=== PATIENT | male | born 1970 | race Caucasian/White ===

== ENCOUNTER → 2019-11-16 07:50 | Outpatient (CLI) | payer BC, SELFPAY ==
--- NOTE | 2019-11-16 07:57 | US_ITS ---
STUDY: ABDOMINAL ULTRASOUND - RIGHT UPPER QUADRANT REASON FOR VISIT: Male, 49 years old elevated lft TECHNIQUE: Ultrasound evaluation of the right upper quadrant was performed with real-time and static mott-scale imaging. TECHNICAL QUALITY: Adequate. COMPARISON: None. FINDINGS: Liver: The liver measures 17.4 cm. There is increased echogenicity consistent with fatty infiltration. The bile ducts are within normal limits. There is hepatic color flow. The direction of portal flow is hepatopetal. There is no demonstrated mass lesion. Gallbladder: Normal distended gallbladder. The gallbladder wall measures 2.6 mm. There is a negative sonographic Martin''s sign. There is no pericholecystic fluid. There are no gallstones. Common Bile Duct (C.B.D.): The common bile duct measures 5.6 mm. Pancreas: Normal size of the head, body and tail of the pancreas. There is increased echogenicity of the pancreas. There is no demonstrated pancreatic mass or cyst. Right Kidney: Normal size of the right kidney. The right kidney measures 10.9 cm x 6.7 cm x 6.5 cm. Normal renal cortex. The right cortex measures 2.2 cm. There is no demonstrated renal mass or cyst. There is no right hydronephrosis. US/Liver IMPRESSION: Mild degree of fatty infiltration of the liver. Electronically Signed: Da Buchanan, at 14:27 EDT , Service support ,
== END ==
PROVIDERS: PCP Family Medicine; Referring Provider Internal Medicine Rheumatology; Visit Provider Internal Medicine Rheumatology
DX: R74.8 Abnormal levels of other serum enzymes (principal)
CPT/HCPCS: 76705

== ENCOUNTER 2021-09-09 13:00 | Outpatient (RCR) | payer BC, SELFPAY ==
--- NOTE | 2021-08-02 15:53 | HP.PTEVAL ---
Patient's Visit Information ELAINA EDUARDO III is a 51 year old M referred to Physical Therapy by Dr. Ash Bethea MD with a diagnosis of SCIATICA. Date of Evaluation: 08/02/21 Physical Therapist: Unique Doll PT, Cert MDT - Visit Plan Frequency: 2-3x /Week Duration: 4-6 Weeks Plan: AQUATIC THERAPY FOR PAIN RELIEF, POSTURE CORRECTION/STRENGTHENING, INSTRUCTION IN APPROPRIATE BODY MECHANICS AND ACTIVITY MODIFICATIONS. PLEASE INCLUDE ENDURANCE EX'S WITH REDUCED WEIGHT BEARING ENVIRONMENT. DLS STARTING WITH A NEUTRAL SPINE PROGRESSING ROM TOLERATED. CHRISTIE LE ROM, STRETCHING AND STRENGTHENING. HEP INSTRUCTION. 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 Disability: NO. Present symptoms: LOW BACK PAIN AND TIGHTNESS. LEFT FOOT DIGITS 1 AND 2 INTERMITTENT TINGLING STARTING IN FEB (DID HAVE MORE SX'S IN LLE BUT IMPROVED). LEFT HIP PAIN. Present since: FEB 2021. Pain Scale: WORST 1/10, LEAST 0/10. Currently: 0/10. Commenced as a result of: WORKING FOR A FRIEND AT [employer]. ON FEET ALL DAY. WHEN DROVE HOME IT WAS HARD TO GET OUT OF VEHICLE AND FELT LIKE SCIATIC NERVE WAS IRRITATED LIKE IN THE PAST BUT THIS WAS WORSE. Symptoms at onset: L TOE TIGNLING AND TINGLING DOWN L CALF AND INTO TOP OF FOOT. ALSO L HIP PAIN. CRAMPING IN BACK HAS STARTED IN LAST 2 TO 3 WKS. Worse: BENDING OVER TO TIE SHOES, PROLONGED SITTING, FLYING, SLOUCHING, LAYING IN BED TOO LONG, TRYING TO RUN IS THE WORST. Better: MASSAGE, CH[facility]CTOR. HYDROMASSAGE AT [employer]. Disturbed sleep: IF I SLEEP ON L HIP IT WILL WAKE ME UP SOMETIMES. Previous history/Previous treatment: BACK/SCIATICA ISSUES STARTED OVER 10 YEARS AGO BUT WOULD GO AWAY IN 3-4 DAYS OR SO. FIRST VISIT WITH CHIROPRACTOR WAS MAR 2021. HAS HAD ABOUT 10 CHIROPRACTIC VISITS. HAS HAD SOME PRESCRIPTION MEDICATION FOR HIS BACK OVER THE YEARS. NO BACK SURGERY. NO BACK INJECTIONS. NO PT. Coughing/sneezing/straining: NEGATIVE. Gait: STATES IT FEELS NORMAL TO HIM BUT OTHERS HAVE TOLD HIM HE LIMPS. WALKS ON TREADMILL 30-45 MINUTES ON INCLINE (UP TO 5) AND FEELS FINE. OTHER: STARTED WORKING OUT AT [employer] IN MAY 2021 TO HELP TYPE II DM. Difficulty initiating urination: PATIENT DENIES BOWEL AND BLADDER DYSFUNCTION. Accidents: NO. Unexplained weight loss: NO. Imaging: NONE RECENT. PMH/Recent major surgery: OA. TYPE II DM. ACID REFLUX. HIATIAL HERNIA. HIGH CHOLESTEROL. HTN MED FOR ENLARGED PROSTATE - Objective Sitting/Standing Posture: POOR. Lordosis: NORMAL. Lateral shift: NO. Relevant shift: N/A. Active Correction of posture: WORSE. Other Observations: INDEP GAIT AND TRANSFERS WITH NO GROSS DEVIATIONS NOTED. Motor deficit: CHRISTIE LE'S GROSSLY 5/5 WITH MMT'ING. Sensory deficit: CHRISTIE LE LIGHT TOUCH SENSATION GROSSLY INTACT AND SYMMETRICAL EXCEPT RIGHT LAT KNEE AREA NUMBNESS FROM OLD INJURY AND DECREASED TOES. ROM deficit: TIGHT CHRISTIE LE HS'S AND GASTROC SOLEUS COMPLEX'S. Dural Signs: POSITIVE L LE. Lumbar mvmt loss: flex - MOD. ext - MIN TO MOD. R SG - MIN. L SG - MIN. PATIENT DENIES INCREASED PAIN WITH LUMBAR ROM TESTING ALL PLANES AND REPORTS IT ONLY STARTS TO LOCK UP ON HIM IF HE STAYS BENT FOR ABOUT 30 SEC OR MORE. Core strength: FAIR. Palpation: NO ACUTE SPINAL OR HIP TENDERNESS NOTED. TREATMENT: NEUROMUSCULAR REEDUCATION - RETRAINING OF MVMT AND POSTURE FOR SITTING, LYING AND STANDING ACTIVITIES. - Balance/Special Test Scores Oswestry Low Back Score: 5 - Goals Goal 1:: DECREASE C/O LOW BACK AND LLE SX'S INCLUDING L HIP PAIN TO EASE ADL'S. Goal Time Frame: 4-6 Weeks Goal 2:: IMPROVE SITTING, STANDING, SLEEP, TRAVEL AND WORK/HOMEMAKING FUNCTION Goal Time Frame: 4-6 Weeks Goal 3:: INSTRUCT IN PROPHYLAXIS Goal Time Frame: 4-6 Weeks - Anticipated Interventions Patient/Client Instruction: Educate patient on: Condition, Plan of Care, Risk Factors For the Purpose of:: To improve self management Therapeutic Exercise to Include: Strength training, Body mechanics, Neuromotor development, In an aquatic setting, Dynamic Lumbar Stabilization For the Purpose of:: To decrease pain, To increase ROM, To improve muscle performance and motor function, To increase tolerance to activity/condition/position, To improve ability of physical actions for home/community/work/leisure TENS: Yes IF ES: Yes Cryotherapy (ice pack, ice massage): Yes Thermo therapy (hot pack): Yes Ultrasound (thermal/non thermal): Yes For the Purpose of:: To decrease pain, To improve nutrient delivery to tissue Thank you for the opportunity to evaluate your patient. For Medicare and Medicare HMO plans, please review the plan of care and approve it. It will need to be FAXED BACK to us at [phone] for Medicare purposes. For Medicare only, by signing this I certify the plan of care. Please let me know if there are questions or concerns regarding this plan of care. Physician Signature: Date:
--- NOTE | 2021-09-09 14:36 | HP.PTDCSUM ---
It has been my pleasure to treat ELAINA EDUARDO III referred by Dr. Ash Bethea MD, with the diagnosis of SCIATICA for a total of 11 visit(s). Discharge Date: Please see the following information for a summary of their discharge status. Subjective: I got a knee pillow for when I sleep on my side and I didn't wake up with pain like I usually do. LLE Pain Intensity (Out of 10): 0 % Improvement: 90 Objective/Function: Ed. on progressions throughout as it relates to I pool program in [place]. Minimal cues needed only for abdominal bracing to avoid LB ext as well as glute/hip extensor engagement in dynamic SLS to avoid LOB. Goal 1:: DECREASE C/O LOW BACK AND LLE SX'S INCLUDING L HIP PAIN TO EASE ADL'S. Goal Progress: Goal Met Goal 2:: IMPROVE SITTING, STANDING, SLEEP, TRAVEL AND WORK/HOMEMAKING FUNCTION Goal Progress: Goal Met Goal 3:: INSTRUCT IN PROPHYLAXIS Goal Progress: Goal Met Plan: *f/u with supervising PT directly following today's appt. Has Progressed to I pool program in [place] (he plan to open this week). Has been given page. Can be d/c'd at this time. AQUATIC THERAPY FOR PAIN RELIEF, POSTURE CORRECTION/STRENGTHENING, INSTRUCTION IN APPROPRIATE BODY MECHANICS AND ACTIVITY MODIFICATIONS. PLEASE INCLUDE ENDURANCE EX'S WITH REDUCED WEIGHT BEARING ENVIRONMENT. DLS STARTING WITH A NEUTRAL SPINE PROGRESSING ROM TOLERATED. CHRISTIE LE ROM, STRETCHING AND STRENGTHENING. HEP INSTRUCTION. If there are questions or concerns regarding this patient's physical therapy, please feel free to call me at [phone]. Thank you for the referral of this patient. Sincerely, Unique Doll, PT, Cert MDT Balance/Gait/Functional tests - Balance/Special Test Scores Oswestry Low Back Score: 5
== END 2021-09-09 19:00 | disposition home or self-care (01) ==
LOC: PT 13:00
PROVIDERS: PCP Family Medicine; Referring Provider Family Medicine; Visit Provider Family Medicine
DX: M54.32 Sciatica, left side (principal)
CPT/HCPCS: 97112; 97113; 97162; 97164

== ENCOUNTER → 2022-10-09 | Outpatient (CLI) | payer BC, SELFPAY ==
[2022-10-09 10:39] LABS: Microalbumin,Random Urine 5.4 mg/L (NO RANGE EST.)
[2022-10-09 11:20] LABS: AST(SGOT) 29 U/L (15-37); Alanine Aminotransfer ALT/SGPT 45 U/L (16-61); Albumin, Serum 3.7 g/dL (3.2-5.0); Alkaline Phosphatase 72 U/L (45-117); Anion Gap 9 (5-15); BUN 18 mg/dL (7-18); BUN/Creat Ratio 19.4 RATIO (10-20); Chloride 109 mmol/L (98-107); Cholesterol 215 mg/dL (200); Creatinine, Serum 0.93 mg/dL (0.70-1.30); EST Glomerular Filtration Rate 91 mL/min (>60); Est Glom Filt Rate - Afr Amer 110 mL/min (>60); Globulin 3.6 g/dL (2.2-4.2); Glucose 165 mg/dL (74-106); High Density Lipoprotein 28 mg/dL; PSA,Total- Diagnostic 0.65 ng/mL (0.0-4.0); Potassium 4.4 mmol/L (3.5-5.1); Protein, Total 7.3 g/dL (6.4-8.2); Sodium Level 136 mmol/L (136-145); Thyroid Stim Hormone (TSH) 2.55 uIU/mL (0.358-3.74); Triglycerides 691 mg/dL; Uric Acid 6.4 mg/dL (3.5-7.2)
[2022-10-09 11:35] LABS: Vitamin B12 451 pg/mL (211-911)
[2022-10-15 15:38] LABS: Anion Gap 10 (5-15); BUN 16 mg/dL (7-18); Calcium,Total 9.2 mg/dL (8.5-10.1); Chloride 101 mmol/L (98-107); Creatinine, Serum 1.14 mg/dL (0.70-1.30); EST Glomerular Filtration Rate 72 mL/min (>60); Est Glom Filt Rate - Afr Amer 87 mL/min (>60); Glucose 176 mg/dL (74-106); Potassium 3.5 mmol/L (3.5-5.1); Sodium Level 139 mmol/L (136-145)
== END | disposition home or self-care (01) ==
LOC: MTLAB 07:54
PROVIDERS: PCP Family Medicine; Referring Provider Family Medicine; Visit Provider Family Medicine
DX: E11.9 Type 2 diabetes mellitus without complications (principal); K21.9 Gastro-esophageal reflux disease without esophagitis; N40.0 Benign prostatic hyperplasia without lower urinary tract symptoms; E78.2 Mixed hyperlipidemia; M10.9 Gout, unspecified
CPT/HCPCS: 36415; 80048; 80053; 80061; 82043; 82306; 82607; 83036; 84153; 84443; 84550

== ENCOUNTER → 2022-10-17 | Outpatient (CLI) | payer BC, SELFPAY ==
[2022-10-17 10:41] LABS: Cholesterol 167 mg/dL (200); High Density Lipoprotein 32 mg/dL; Triglycerides 338 mg/dL; Very Low Density Lipoprotein 68 mg/dL (5-40)
[2022-10-17 11:14] LABS: Hemoglobin A1c 10.5 % (3.8-5.6)
== END | disposition home or self-care (01) ==
LOC: MTLAB 07:42
PROVIDERS: Family Medicine; PCP Family Medicine; Referring Provider Family Medicine; Visit Provider Family Medicine
DX: E11.9 Type 2 diabetes mellitus without complications (principal)
CPT/HCPCS: 36415; 80061; 83036

== ENCOUNTER → 2023-01-21 | Outpatient (CLI) | payer BC, SELFPAY | END | disposition home or self-care (01) | LOC: SL 20:09 | PROVIDERS: PCP Family Medicine; Referring Provider Nurse Practitioner Acute Care; Visit Provider Nurse Practitioner Acute Care | DX: G47.33 Obstructive sleep apnea (adult) (pediatric) (principal) | CPT/HCPCS: 95811 ==

== ENCOUNTER → 2023-02-12 | Outpatient (CLI) | payer BC, SELFPAY | END | disposition home or self-care (01) | LOC: SL 09:59 | PROVIDERS: PCP Family Medicine; Visit Provider Nurse Practitioner Acute Care | DX: Z00.00 Encounter for general adult medical examination without abnormal findings (principal) ==

== ENCOUNTER → 2023-04-30 | Outpatient (CLI) | payer BC, SELFPAY | END | disposition home or self-care (01) | LOC: SL 13:23 | PROVIDERS: PCP Family Medicine; Referring Provider Internal Medicine Critical Care Medicine; Visit Provider Internal Medicine Critical Care Medicine | DX: G47.33 Obstructive sleep apnea (adult) (pediatric) (principal) | CPT/HCPCS: 98960; G0463 ==

== ENCOUNTER 2024-02-26 16:23 | Emergency (ER) | payer SELFPAY ==
[2024-02-26 16:25] VITALS: BP 149/95; PULSE 113; RESP 16; TEMP 37.1; O2SAT 98; BMI 38.4
[2024-02-26 16:30] VITALS: O2SAT 98
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
[2024-02-26] MEDS: Lidocaine 1% (20 ml mdv) 20 ML Vial INFILT (17:45)
[2024-02-26] MEDS: Diphth,Pertuss(Acell),Tet Vac 0.5 ML Vial IM (17:45)
--- OUTSIDE RECORDS SUMMARY | 2024-02-26 18:19 | XMS RPT_ITS | CCD ---
Author Organization [facility] Care Team Providers Care Head Of Acquisitions Name Role Phone MELONIE JORDAN Attending Mahin pinto PHYSICIAN, NOT RECORDED Primary Care Unavaila ble Problems Problem Classification Problem Date Documented Da te Episodic/Chronic Diseases of mouth; excluding dental (2 sources) Mucocele of salivary gland; Translations: [Mucocele of salivary gland] Onset: 06-08-2018 Episodic Results Test Name Value Interpretation Reference Range Facil itlisa OCon 01-12-2021 CN Office Visit (UCTR ) ELADIO EDUARDO ([id number]) 1970 Date Time Provider Department 01/12/21 12:45 PM SELWYN ODONNELL [facility] During your visit today, we recorded the following information about you: Temperature Pulse Respiration Blood pressure 98.7 degrees 100/minute 18/minute 128/80 Weight 124.3 kg Selwyn Odonnell APRN.CNP 01/12/2021 1:47 PM Signed Visit Date: January 12, 2021 Patient Name: Mr.Arthur Eduardo Date of : 1970 MRN/E #: [id number] Chief Complaint Patient presents with: Insect Bite: back of neck with right side facial swelling and redness x 5 days History of present illness Eladio Eduardo is a 50 year old male. Presents with complaints of a rash on the back of his head and swelling around the right ear. Denies having any fever, chills, body aches, headaches, or pain. He reports having a tingling sensation right, back side of his neck and head that started a week ago then the rash appeared. He has not received the Shingrix vaccine. Denies having any hearing loss, drainage from the rash or ear, or tinnitus. He does have swollen lymph nodes behind the right ear. PAIN EVALUATION No data found in the last 1 encounters. ALLERGIES No Known Allergies No past medical history on file. No past surgical history on file. Social History Tobacco Use - Smoking status: Never Smoker - Smokeless tobacco: Never Used Substance Use Topics - Alcohol use: Not on file - Drug use: Not on file No family history on file. Review of Systems Constitutional: Negative for chills, fever and malaise/fatigue. HENT: Negative for congestion, ear pain, hearing loss, sore throat and tinnitus. Swelling around right ear Respiratory: Negative for cough, shortness of breath and wheezing. Cardiovascular: Negative for chest pain and palpitations. Gastrointestinal: Negative for abdominal pain, diarrhea, nausea and vomiting. Musculoskeletal: Negative for myalgias. Skin: Positive for rash (back of neck on right side). Neurological: Negative for dizziness, tingling and headaches. Physical Exam Vitals and nursing note reviewed. Constitutional: Appearance: Normal appearance. HENT: Head: Eyes: Extraocular Movements: Extraocular movements intact. Pupils: Pupils are equal, round, and reactive to light. Pulmonary: Effort: Pulmonary effort is normal. Skin: General: Skin is warm and dry. Findings: Rash present. Neurological: Mental Status: He is alert and oriented to person, place, and time. BP 128/80 Pulse 100 Temp 98.7 Resp 18 Wt 274 lb (124.3kg) SpO2 96% Assessment/Plan (B02.9) Herpes zoster without complication (primary encounter diagnosis) -discussed red flags -discussed viral etiology -no anti-viral prescribed, outside 3 days of symptoms -follow up with PCP if symptoms worsen Selwyn Odonnell APRN.BROCK Discussed above plan with patient. Pt agreeable with above plan. Selwyn Odonnell APRN.CNP 01/12/2021 1:16 PM Signed Herpes Zoster Infection (Shingles) Herpes zoster infection, also called shingles, is caused by the chickenpox virus. When a person has chickenpox, he or she is never completely cured of the virus. The virus lives at the base of nerves under the skin, and the body's immune system usually keeps the infection confined there. However, sometimes the virus becomes active again, and produces blisters. Pain is usually the first sign of shingles, followed by blisters most often located over one side of the chest and back, or on one side of the face or neck. However, shingles can occur almost anywhere on the body. The blisters of shingles usually heal in about 3 weeks. Several medications can hasten healing slightly if given within the first 2 to 3 days. These medications are acyclovir (Zovirax), famcyclovir (Famvir), and valacyclovir (Valtrex). Occasionally, the pain of shingles lasts after the skin has healed. This is called postherpetic neuralgia. People over about 60 years of age are at greatest risk of this. Postherpetic neuralgia can be treated with oral medications for pain, a cream called Zosqix, and tricyclic antidepressants such as amitriptyline (Elavil). These tricyclic antidepressants are not used for their antidepressant actions, but rather for their beneficial effects on healing inflamed nerves. Postherpetic neuralgia usually disappears within six months. Referring Provider: SELF [[id number]] Allergies As of Date: 01/12/2021 (No Known Allergies) Date Reviewed: 01/12/2021 Reviewed by: Kamila Joseph - Fully Assessed Reason for Visit: Insect Bite [929] Cmt: back of neck with right side facial swelling and redness x 5 days Primary Visit Diagnosis:Herpes zoster without complication [B02.9] Prescriptions as of 01/12/2021 - allopurinol (ZYLOPRIM) 100 mg tablet Take 100 mg by mouth. - meloxicam (MOBIC) 15 mg tablet 1 tab(s) (more content not included)... [facility] CNOVon 12-18-2020 CNOV Office Visit (UCWSTR ) ELADIO EDUARDO ([id number]) 1970 M Date Time Provider Department 12/18/20 7:30 AM LOGANGUERO SELWYN ARMSTRONG During your visit today, we recorded the following information about you: Temperature Pulse Respiration Blood pressure 98.3 degrees 102/minute 16/minute 122/72 Weight 124.3 kg Selwyn Odonnell APRN.CNP 12/18/2020 9:07 AM Signed Visit Date: December 18, 2020 Patient Name: Mr.Arthur Eduardo Date of : 1970 MRN/E #: [id number] Chief Complaint Patient presents with: Ear Pain: bilateral ear pain, swimming last week History of present illness Eladio Eduardo is a 50 year old male. Presents with complaints of bilateral ear pain that started 1 week ago. Denies having fever, chills, congestion, headache, body aches, fatigue, SOB, or N/V/D. 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 He has beeing using an old rx of ofloxacin and feels the ears are improving and is requesting a refill. PAIN EVALUATION No data found in the last 1 encounters. ALLERGIES No Known Allergies No past medical history on file. No past surgical history on file. Social History Tobacco Use - Smoking status: Never Smoker - Smokeless tobacco: Never Used Substance Use Topics - Alcohol use: Not on file - Drug use: Not on file No family history on file. Review of Systems Constitutional: Negative for chills, fever and malaise/fatigue. HENT: Positive for ear pain (left ear) and hearing loss (muffled hearing). Negative for congestion, ear discharge, sore throat and tinnitus. Respiratory: Negative for cough and shortness of breath. Cardiovascular: Negative for chest pain and palpitations. Gastrointestinal: Negative for abdominal pain, diarrhea, nausea and vomiting. Musculoskeletal: Negative for myalgias. Skin: Negative for itching and rash. Neurological: Negative for dizziness, tingling and headaches. Physical Exam Vitals and nursing note reviewed. Constitutional: Appearance: Normal appearance. HENT: Right Ear: Decreased hearing noted. Tenderness present. No drainage or swelling. No middle ear effusion. There is no impacted cerumen. No mastoid tenderness. Tympanic membrane is not erythematous or bulging. Left Ear: Decreased hearing noted. Swelling and tenderness present. No drainage. No middle ear effusion. There is no impacted cerumen. No mastoid tenderness. Tympanic membrane is not erythematous or bulging. Eyes: Extraocular Movements: Extraocular movements intact. Pupils: Pupils are equal, round, and reactive to light. Cardiovascular: Rate and Rhythm: Normal rate and regular rhythm. Pulses: Normal pulses. Heart sounds: Normal heart sounds. Pulmonary: Effort: Pulmonary effort is normal. No respiratory distress. Breath sounds: Normal breath sounds. No wheezing. Skin: General: Skin is warm and dry. Neurological: Mental Status: He is alert and oriented to person, place, and time. BP 122/72 Pulse 102 Temp 98.3 Resp 16 Wt 274 lb (124.3kg) SpO2 97% Assessment/Plan (H60.332) Acute swimmer's ear of left side (primary encounter diagnosis) -ofloxacin (FLOXIN) 0.3 % otic solution -education material provided -use medication as prescribed -f/u if no better in 3-5 days -discussed proper ear hygiene -discussed prevention Selwyn Odonnell APRN.BROCK Discussed above plan with patient. Pt agreeable with above plan. Selwyn Odonnell APRN.CNP 12/18/2020 7:39 AM Signed Swimmer's Ear What is swimmer's ear? Swimmer's ear (otitis externa) is an infection of the skin of the cartilaginous portion of the ear canal. Because the ear canal is dark, warm and capable of retaining water, it makes a perfect culture chamber for the growth of bacteria or fungus. The disease starts as a local infection in the ear canal (acute otitis externa) and can spread to cartilage and bone of the ear canal. When this occurs it is called malignant external otitis. Facial nerve paralysis can result when the disease progresses this far. What are the symptoms of swimmer's ear? Pain Ear blockage Foul smelling discharge Hearing loss Itching What conditions cause swimmer's ear? Warm temperatures and high humidity are more likely to promote infection in the ear canal. Trapping of water within the ear canal, trauma to the skin of the ear canal (from cotton swab abuse or hearing aid use), loss of the natural protection of ear wax or exposure to contaminated water may also cause otitis externa. How is swimmer's ear treated? Cleaning the ear canal of accumulated debris is the first priority of treatment. Avoiding water exposure and the use of ear drops usually suffices to stop the infection. Occasionally, systemic antibiotics are necessary. What can I do to prevent swimme (more content not included)... [facility] CNOVon 11-19-2018 CNOV Office Visit (UCWSTR ) JERONIMO EDUARDO III ([id number]) 1970 M Date Time Provider Department 11/19/18 7:45 AM ANNALISA CANNON [facility] During your visit today, we recorded the following information about you: Temperature Pulse Respiration Blood pressure 98 degrees 80/minute 16/minute 136/86 Weight 128.5 kg Annalisa Cannon APRN.IT SERVICE DELIVERY MANAGER 11/19/2018 8:16 AM Signed Subjective HPI Art Cait BARNEY is a 48 year old male who presents with right foot pain that he suspects is gout related. Pork is a known trigger of his which he had recently on vacation- also increased alcohol intake and decreased hydration. He has had this in the past intermittently. Prednisone taper has relieved previous flares. He is a type 2 diabetic. Last A1c 6.1 per patient. Does not check daily sugars. Review of Systems Constitutional: Negative for chills and fever. Respiratory: Negative for shortness of breath. Cardiovascular: Negative for chest pain. Gastrointestinal: Negative for nausea and vomiting. Musculoskeletal: Positive for joint pain. BP 136/86 Pulse 80 Temp 36.7 ?C (98 ?F) (Left Tympanic) Resp 16 Wt 128.5 kg (283 lb 6.4 oz) History reviewed. No pertinent past medical history. History reviewed. No pertinent surgical history. ALLERGIES Patient has no known allergies. MEDICATIONS doxycycline 20 mg tablet Take 1 tablet by mouth twice daily. metFORMIN (GLUCOPHAGE) 500 mg tablet Take 1 tablet by mouth twice daily. doxazosin (CARDURA) 4 mg tablet Take 1 tablet by mouth once daily. pantoprazole DR (PROTONIX) 40 mg tablet Take 1 tablet by mouth once daily. predniSONE (DELTASONE) 10 mg tablet Take 6 tabs day 1, 5 tabs day 2, 4 tabs day 3, 3 tabs day 4, 2 tabs day 5, and 1 tab day 6 History reviewed. No pertinent family history. Social History Tobacco Use - Smoking status: Never Smoker - Smokeless tobacco: Never Used Substance Use Topics - Alcohol use: Not on file - Drug use: Not on file Objective Physical Exam Constitutional: He is oriented to person, place, and time and well-developed, well-nourished, and in no distress. HENT: Head: Normocephalic and atraumatic. Eyes: Conjunctivae are normal. Cardiovascular: Normal rate, regular rhythm, normal heart sounds and intact distal pulses. Exam reveals no gallop and no friction rub. No murmur heard. Pulses: Dorsalis pedis pulses are 2+ on the right side, and 2+ on the left side. Pulmonary/Chest: Effort normal and breath sounds normal. No respiratory distress. He has no wheezes. He has no rales. He exhibits no tenderness. Musculoskeletal: He exhibits tenderness (first MTP joint). He exhibits no edema. Lymphadenopathy: He has no cervical adenopathy. Neurological: He is alert and oriented to person, place, and time. Gait normal. Skin: Skin is warm and dry. He is not diaphoretic. There is erythema (slight over first MTP). Psychiatric: Mood, memory, affect and judgment normal. ASSESSMENT/PLAN: 1. Acute gout involving toe of right foot, unspecified cause - ICD9: 274.01, ICD10: M10.9 - reveiwed preventative treatments to discuss with PCP at next visit - avoid triggers, education provided - increase hydration - PREDNISONE 10 MG TABLET - I informed the patient to avoid all NSAID's while on steroid treatment, including: Aleve, Motrin, Advil, or ibuprofen or naproxen. May take Tylenol or acetaminophen as needed for pain relief. - follow up with PCP if no better in 3-5 days All of the above discussed with the patient in detail. Patient is in agreement with the above plan. Treatment and plan of care discussed including course of treatment, possible medication side effects, and what to watch for in regards to worsening signs and symptoms. All questions addressed. Annalisa Cannon APRN.IT SERVICE DELIVERY MANAGER Referring Provider: SELF [200] Allergies As of Date: 11/19/2018 (No Known Allergies) Date Reviewed: 11/19/2018 Reviewed by: Annalisa Cannon - Fully Assessed Reason for Visit: Gout [239] Cmt: flare in RIGHT foot x 1 day Visit Diagnosis:Acute gout involving toe of right foot, unspecified cause [M10.9] Order(s):predniSONE (DELTASONE) 10 mg tabletTake 6 tabs day 1, 5 tabs day 2, 4 tabs day 3, 3 tabs day 4, 2 tabs day 5, and 1 tab day 6Disp: 21 tabletRfl: 0 Prescriptions as of 11/19/2018 Sig: DOXYCYCLINE HYCLATE 20 MG TAB* Take 1 tablet by mouth twice * METFORMIN 500 MG TABLET Take 1 tablet by mouth twice * DOXAZOSIN 4 MG TABLET Take 1 tablet by mouth once d* PANTOPRAZOLE 40 MG TABLET,DEL* Take 1 tablet by mouth once d* PREDNISONE 10 MG TABLET Take 6 tabs day 1, 5 tabs day* Medication notes this encounter AMOXICILLIN 500 MG TABLET >> Annalisa Rivera Ma 11/19/2018 7:45 AM >> ANNALISA RIVERA MA Nov 19, 2018 7:45 AM D/C Problem List As Of Date: 11/19/2018 (None) Prescriptions ordered this encounter Disp Refills Start End PREDNISONE 10 MG TABLET 21 t* 0 11/19/2018 Sig: Take 6 tabs day 1, 5 tabs day 2, 4 tabs day 3, 3 tabs day 4, 2 tabs day 5, and 1 tab day 6 Medications Discontinued During This Encounter Amoxicillin 500 mg tablet 11/19/2018 Class: Historical Med Route: ORAL Sig: Take 500 mg by mouth twice daily. Disc: Course of therapy completed predniSONE (DELTASONE) 10 mg tablet 21 t* 0 11/21/2017 11/19/2018 Sig: Take 6 tabs day 1, 5 tabs day 2, 4 tabs day 3, 3 tabs day 4, 2 tabs day 5, and 1 tab day 6 Patient not taking: Reported on 11/19/2018 Disc: Reason for discontinue is not on file. Encounter Status:Closed by VALERY MAHAN.ANNALISA GUTIÉRREZ on 11/19/18 [facility] PROGRESSon 11-19-2018 PROGRESS HNO ID: [id number] Author: Annalisa Cannon Service: ? Author Type: Nurse Practitioner Type: Progress Notes Filed: 11/19/2018 8:16 AM Note Text: Subjective HPI Jeronimo Eduardo III is a 48 year old male who presents with right foot pain that he suspects is gout related. Pork is a known trigger of his which he had recently on vacation- also increased alcohol intake and decreased hydration. He has had this in the past intermittently. Prednisone taper has relieved previous flares. He is a type 2 diabetic. Last A1c 6.1 per patient. Does not check daily sugars. Review of Systems Constitutional: Negative for chills and fever. Respiratory: Negative for shortness of breath. Cardiovascular: Negative for chest pain. Gastrointestinal: Negative for nausea and vomiting. Musculoskeletal: Positive for joint pain. BP 136/86 Pulse 80 Temp 36.7 ?C (98 ?F) (Left Tympanic) Resp 16 Wt 128.5 kg (283 lb 6.4 oz) History reviewed. No pertinent past medical history. History reviewed. No pertinent surgical history. ALLERGIES Patient has no known allergies. MEDICATIONS doxycycline 20 mg tablet Take 1 tablet by mouth twice daily. metFORMIN (GLUCOPHAGE) 500 mg tablet Take 1 tablet by mouth twice daily. doxazosin (CARDURA) 4 mg tablet Take 1 tablet by mouth once daily. pantoprazole DR (PROTONIX) 40 mg tablet Take 1 tablet by mouth once daily. predniSONE (DELTASONE) 10 mg tablet Take 6 tabs day 1, 5 tabs day 2, 4 tabs day 3, 3 tabs day 4, 2 tabs day 5, and 1 tab day 6 History reviewed. No pertinent family history. Social History Tobacco Use - Smoking status: Never Smoker - Smokeless tobacco: Never Used Substance Use Topics - Alcohol use: Not on file - Drug use: Not on file Objective Physical Exam Constitutional: He is oriented to person, place, and time and well-developed, well-nourished, and in no distress. HENT: Head: Normocephalic and atraumatic. Eyes: Conjunctivae are normal. Cardiovascular: Normal rate, regular rhythm, normal heart sounds and intact distal pulses. Exam reveals no gallop and no friction rub. No murmur heard. Pulses: Dorsalis pedis pulses are 2+ on the right side, and 2+ on the left side. Pulmonary/Chest: Effort normal and breath sounds normal. No respiratory distress. He has no wheezes. He has no rales. He exhibits no tenderness. Musculoskeletal: He exhibits tenderness (first MTP joint). He exhibits no edema. Lymphadenopathy: He has no cervical adenopathy. Neurological: He is alert and oriented to person, place, and time. Gait normal. Skin: Skin is warm and dry. He is not diaphoretic. There is erythema (slight over first MTP). Psychiatric: Mood, memory, affect and judgment normal. ASSESSMENT/PLAN: 1. Acute gout involving toe of right foot, unspecified cause - ICD9: 274.01, ICD10: M10.9 - reveiwed preventative treatments to discuss with PCP at next visit - avoid triggers, education provided - increase hydration - PREDNISONE 10 MG TABLET - I informed the patient to avoid all NSAID's while on steroid treatment, including: Aleve, Motrin, Advil, or ibuprofen or naproxen. May take Tylenol or acetaminophen as needed for pain relief. - follow up with PCP if no better in 3-5 days All of the above discussed with the patient in detail. Patient is in agreement with the above plan. Treatment and plan of care discussed including course of treatment, possible medication side effects, and what to watch for in regards to worsening signs and symptoms. All questions addressed. Annalisa Cannon APRN.IT SERVICE DELIVERY MANAGER [facility] Final Surgical Pathology Rep [facility] 06-10-2018 Final Surgical Pathology Report . Pathology Reports Accession: Collected Date/Time: Received Date/Time: Pathologist: [id number] 06/08/2018 08:22 EST 06/09/2018 08:22 MD IVC BOONE Final Surgical Pathology Report DIAGNOSIS: LEFT LOWER LIP, BIOPSY- - MUCOCELE. - PROMINENT MINOR SALIVARY GLAND TISSUE WITH NO HISTOPATHOLOGIC CHANGES. CLINICAL INFORMATION: MUCOCELE SPECIMEN: A ORAL, BX - LEFT LOWER LIP GROSS DESCRIPTION: Received in formalin labeled left lower lip are 3 portions of mccormick glistening soft tissue ranging from 0.3-0.7 cm. The largest tissue appears to be partially surfaced by pale mccormick mucosa and is inked and bisected. TS -1 Dictated by Pauly DEJESUS ([facility]) MICROSCOPIC DESCRIPTION: Slides reviewed. Electronically Signed by Pathology Report verified by [facility] Electronically signed by VIC LAKE MD Sign out Date: 06/10/2018 12:33 Performing Lab: [facility], [address] [place] [id number] [place] [address] ([place]) Comment on above: Performed By: #### S PFR #### [facility] [address] [place] [id number] CNOVon 11-21-2017 CNOV Office Visit (UCWSTR ) JERONIMO EDUARDO III ([id number]) 1970 M Date Time Provider Department 11/21/17 8:30 AM PATRICIA RINALDI (BROCK) [facility] During your visit today, we recorded the following information about you: Temperature Pulse Blood pressure Weight 98.2 degrees 78/minute 126/70 119.7 kg Patricia Rinaldi APRN.CNP 11/21/2017 8:36 AM Signed GOUT: You have an acute joint inflammation called gout. Gout is caused by uric acid crystals forming in the joint. Often uric acid levels in the blood are also elevated. Gout occurs most commonly in men and appears to be an inherited condition. Diuretics (water pills) tend to elevate blood uric acid levels and can cause similar joint problems. The big toe, foot, ankle, and knee are the joints most often affected. Treatment includes: - Rest and elevate the affected limb until the swelling and pain are better. Use a frame to keep the sheets off your leg as needed. - Anti-inflammatory medicine usually brings about dramatic relief of pain , redness, and swelling within 2-3 days. - Increase your fluid intake, avoid alcohol, and do not eat liver, sweetbreads, or sardines. - Long-term management may require medicine to lower blood uric acid levels or stopping diuretic therapy. Please see your doctor if your condition is not better after 1-2 days of treatment, or if you have fever, skin rash, diarrhea, or other joint pains. Patricia Rinaldi APRN.BROCK 11/21/2017 9:04 AM Signed Subjective HPI HPI Jeronimo Eduardo III is a 47 year old male who presents today for CC of right great toe pain. This started 1 day ago. Has tried ibuprofen with mild relief. Symptoms are worsened by walking. Risk factors hx of gout, feels similar. Denies calf pain. Denies numbness/tingling of right lower extremity. .Patient presents with: Gout: RT big toe gout, flare up X yesterday No past medical history on file. No past surgical history on file. ALLERGIES Patient has no known allergies. MEDICATIONS metformin HCl (METFORMIN ORAL) Take by mouth. Amoxicillin 500 mg tablet Take 500 mg by mouth twice daily. DOXAZOSIN MESYLATE (DOXAZOSIN ORAL) Take by mouth. PANTOPRAZOLE SODIUM (PANTOPRAZOLE ORAL) Take by mouth. predniSONE (DELTASONE) 10 mg tablet Take 6 tabs day 1, 5 tabs day 2, 4 tabs day 3, 3 tabs day 4, 2 tabs day 5, and 1 tab day 6 No family history on file. Social History Substance Use Topics - Smoking status: Never Smoker - Smokeless tobacco: Never Used - Alcohol use Not on file Review of Systems Constitutional: Negative for chills and fever. Respiratory: Negative for cough, shortness of breath and wheezing. Cardiovascular: Negative for chest pain. Skin: Negative for itching and rash. Objective Blood pressure 126/70, pulse 78, temperature 36.8 ?C (98.2 ?F), temperature source Tympanic, weight 119.7 kg (264 lb). Physical Exam Constitutional: He is oriented to person, place, and time and well-developed, well-nourished, and in no distress. Non-toxic appearance. He does not have a sickly appearance. No distress. HENT: Head: Normocephalic and atraumatic. Cardiovascular: Normal rate, regular rhythm, S1 normal, S2 normal and normal heart sounds. Pulses: Dorsalis pedis pulses are 2+ on the right side. Posterior tibial pulses are 2+ on the right side. Pulmonary/Chest: Effort normal and breath sounds normal. Musculoskeletal: Right foot: There is decreased range of motion, tenderness, bony tenderness and swelling. There is normal capillary refill, no crepitus, no deformity and no laceration. Feet: Neurological: He is alert and oriented to person, place, and time. Gait normal. Skin: He is not diaphoretic. ASSESSMENT/PLAN: 1. Acute gout involving toe of right foot, unspecified cause - ICD9: 274.01, ICD10: M10.9 Given educational pamphlet -use medication as prescribed -follow up if symptoms persist, worsen, change - PREDNISONE 10 MG TABLET Prescription instructions reviewed with patient as applicable. Patient advised if symptoms do not improve or if symptoms worsen sooner, to contact the office for further evaluation by their primary care physician. Potential red flag symptoms discussed with the patient. Reviewed appropriate action plan to take if red flag symptoms occur. Patient agreeable to treatment plan. Patricia Rinaldi APRN.BROCK Referring Provider: SELF [[id number]] Allergies As of Date: 11/21/2017 (No Known Allergies) Date Reviewed: 11/21/2017 Reviewed by: Patricia (Brock) - Fully Assessed Reason for Visit: Gout [239] Cmt: RT big toe gout, flare up X yesterday Visit Diagnosis:Acute gout involving toe of right foot, unspecified cause [M10.9] Order(s):predniSONE (DELTASONE) 10 mg tabletTake 6 tabs day 1, 5 tabs day 2, 4 tabs day 3, 3 tabs day 4, 2 tabs day 5, and 1 tab day 6Disp: 21 tabletRfl: 0 Prescriptions as of 11/21/2017 Sig: METFORMIN ORAL Take by mouth. AMOXICILLIN 500 MG TABLET Take 500 mg by mouth twice da* DOXAZOSIN ORAL Take by mouth. PANTOPRAZOLE ORAL Take by mouth. PREDNISONE 10 MG TABLET Take 6 tabs day 1, 5 tabs day* Problem List As Of Date: 11/21/2017 (None) Other instructions from your clinician: GOUT: You have an acute joint inflammation called gout. Gout is caused by uric acid crystals forming in the joint. Often uric acid levels in the blood are also elevated. Gout occurs most commonly in men and appears to be an inherited condition. Diuretics (water pills) tend to elevate blood uric acid levels and can cause similar joint problems. The big toe, foot, ankle, and knee are the joints most often affected. Treatment includes: - Rest and elevate the affected limb until the swelling and pain are better. Use a frame to keep the sheets off your leg as needed. - Anti-inflammatory medicine usually brings about dramatic relief of pain , redness, and swelling within 2-3 days. - Increase your fluid intake, avoid alcohol, and do not eat liver, sweetbreads, or sardines. - Long-term management may require medicine to lower blood uric acid levels or stopping diuretic therapy. Please see your doctor if your condition is not better after 1-2 days of treatment, or if you have fever, skin rash, diarrhea, or other joint pains. Prescriptions ordered this encounter Disp Refills Start End PREDNISONE 10 MG TABLET 21 t* 0 11/21/2017 Sig: Take 6 tabs day 1, 5 tabs day 2, 4 tabs day 3, 3 tabs day 4, 2 tabs day 5, and 1 tab day 6 Medications Discontinued During This Encounter predniSONE (DELTASONE) 10 mg tablet 21 t* 0 02/22/2017 11/21/2017 Sig: Take 6 tabs day 1, 5 tabs day 2, 4 tabs day 3, 3 tabs day 4, 2 tabs day 5, and 1 tab day 6 Patient not taking: Reported on 11/21/2017 Disc: Reason for discontinue is not on file. Encounter Status:Closed by PATRICIA RINALDI CNP on 11/21/17 [facility] PROGRESSon 11-21-2017 PROGRESS HNO ID: [id number] Author: Patricia Pritchett) Service: (none) Author Type: Nurse Practitioner Type: Progress Notes Filed: 11/21/2017 9:04 AM Note Text: Subjective HPI HPI Jeronimo Eduardo III is a 47 year old male who presents today for CC of right great toe pain. This started 1 day ago. Has tried ibuprofen with mild relief. Symptoms are worsened by walking. Risk factors hx of gout, feels similar. Denies calf pain. Denies numbness/tingling of right lower extremity. .Patient presents with: Gout: RT big toe gout, flare up X yesterday No past medical history on file. No past surgical history on file. ALLERGIES Patient has no known allergies. MEDICATIONS metformin HCl (METFORMIN ORAL) Take by mouth. Amoxicillin 500 mg tablet Take 500 mg by mouth twice daily. DOXAZOSIN MESYLATE (DOXAZOSIN ORAL) Take by mouth. PANTOPRAZOLE SODIUM (PANTOPRAZOLE ORAL) Take by mouth. predniSONE (DELTASONE) 10 mg tablet Take 6 tabs day 1, 5 tabs day 2, 4 tabs day 3, 3 tabs day 4, 2 tabs day 5, and 1 tab day 6 No family history on file. Social History Substance Use Topics - Smoking status: Never Smoker - Smokeless tobacco: Never Used - Alcohol use Not on file Review of Systems Constitutional: Negative for chills and fever. Respiratory: Negative for cough, shortness of breath and wheezing. Cardiovascular: Negative for chest pain. Skin: Negative for itching and rash. Objective Blood pressure 126/70, pulse 78, temperature 36.8 ?C (98.2 ?F), temperature source Tympanic, weight 119.7 kg (264 lb). Physical Exam Constitutional: He is oriented to person, place, and time and well-developed, well-nourished, and in no distress. Non-toxic appearance. He does not have a sickly appearance. No distress. HENT: Head: Normocephalic and atraumatic. Cardiovascular: Normal rate, regular rhythm, S1 normal, S2 normal and normal heart sounds. Pulses: Dorsalis pedis pulses are 2+ on the right side. Posterior tibial pulses are 2+ on the right side. Pulmonary/Chest: Effort normal and breath sounds normal. Musculoskeletal: Right foot: There is decreased range of motion, tenderness, bony tenderness and swelling. There is normal capillary refill, no crepitus, no deformity and no laceration. Feet: Neurological: He is alert and oriented to person, place, and time. Gait normal. Skin: He is not diaphoretic. ASSESSMENT/PLAN: 1. Acute gout involving toe of right foot, unspecified cause - ICD9: 274.01, ICD10: M10.9 Given educational pamphlet -use medication as prescribed -follow up if symptoms persist, worsen, change - PREDNISONE 10 MG TABLET Prescription instructions reviewed with patient as applicable. Patient advised if symptoms do not improve or if symptoms worsen sooner, to contact the office for further evaluation by their primary care physician. Potential red flag symptoms discussed with the patient. Reviewed appropriate action plan to take if red flag symptoms occur. Patient agreeable to treatment plan. Patricia Rinaldi APRN.IT SERVICE DELIVERY MANAGER [facility] Encounters Encounter Date Encounter Type Care Provider Facility Start: 06-08-2018 End: 06-13-2018 Patient encounter procedure MELONIE Marques y:A Payers Date Payer Category Payer Private Health Insurance [id number] 2018 Unknown [id number] 1970 Unknown [id number] Progress note 01-12-2021 Note Date & Type Note Facility 01-12-2021 Note HNO ID: [id number] Author: Selwyn Odonnell APRN.CNP Service: ? Author Type: Nurse Practitioner Type: Progress Notes Filed: 01/12/2021 1:47 PM Note Text: Visit Date: January 12, 2021 Patient Name: Mr.Arthur Eduardo Date of : 1970 MRN/E #: [id number] Chief Complaint Patient presents with: Insect Bite: back of neck with right side facial swelling and redness x 5 days History of present illness Eladio Eduardo is a 50 year old male. Presents with complaints of a rash on the back of his head and swelling around the right ear. Denies having any fever, chills, body aches, headaches, or pain. He reports having a tingling sensation right, back side of his neck and head that started a week ago then the rash appeared. He has not received the Shingrix vaccine. Denies having any hearing loss, drainage from the rash or ear, or tinnitus. He does have swollen lymph nodes behind the right ear. PAIN EVALUATION No data found in the last 1 encounters. ALLERGIES No Known Allergies No past medical history on file. No past surgical history on file. Social History Tobacco Use - Smoking status: Never Smoker - Smokeless tobacco: Never Used Substance Use Topics - Alcohol use: Not on file - Drug use: Not on file No family history on file. Review of Systems Constitutional: Negative for chills, fever and malaise/fatigue. HENT: Negative for congestion, ear pain, hearing loss, sore throat and tinnitus. Swelling around right ear Respiratory: Negative for cough, shortness of breath and wheezing. Cardiovascular: Negative for chest pain and palpitations. Gastrointestinal: Negative for abdominal pain, diarrhea, nausea and vomiting. Musculoskeletal: Negative for myalgias. Skin: Positive for rash (back of neck on right side). Neurological: Negative for dizziness, tingling and headaches. Physical Exam Vitals and nursing note reviewed. Constitutional: Appearance: Normal appearance. HENT: Head: Eyes: Extraocular Movements: Extraocular movements intact. Pupils: Pupils are equal, round, and reactive to light. Pulmonary: Effort: Pulmonary effort is normal. Skin: General: Skin is warm and dry. Findings: Rash present. Neurological: Mental Status: He is alert and oriented to person, place, and time. BP 128/80 Pulse 100 Temp 98.7 Resp 18 Wt 274 lb (124.3kg) SpO2 96% Assessment/Plan (B02.9) Herpes zoster without complication (primary encounter diagnosis) -discussed red flags -discussed viral etiology -no anti-viral prescribed, outside 3 days of symptoms -follow up with PCP if symptoms worsen Selwyn Odonnell APRN.CNP Discussed above plan with patient. Pt agreeable with above plan. [facility] Progress note 12-18-2020 Note Date & Type Note Facility 12-18-2020 Note HNO ID: [id number] Author: Selwyn Odonnell APRN.IT SERVICE DELIVERY MANAGER Service: ? Author Type: Nurse Practitioner Type: Progress Notes Filed: 12/18/2020 9:07 AM Note Text: Visit Date: December 18, 2020 Patient Name: Mr.Arthur Eduardo Date of : 1970 MRN/E #: [id number] Chief Complaint Patient presents with: Ear Pain: bilateral ear pain, swimming last week History of present illness Eladio Eduardo is a 50 year old male. Presents with complaints of bilateral ear pain that started 1 week ago. Denies having fever, chills, congestion, headache, body aches, fatigue, SOB, or N/V/D. 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 He has beeing using an old rx of ofloxacin and feels the ears are improving and is requesting a refill. PAIN EVALUATION No data found in the last 1 encounters. ALLERGIES No Known Allergies No past medical history on file. No past surgical history on file. Social History Tobacco Use - Smoking status: Never Smoker - Smokeless tobacco: Never Used Substance Use Topics - Alcohol use: Not on file - Drug use: Not on file No family history on file. Review of Systems Constitutional: Negative for chills, fever and malaise/fatigue. HENT: Positive for ear pain (left ear) and hearing loss (muffled hearing). Negative for congestion, ear discharge, sore throat and tinnitus. Respiratory: Negative for cough and shortness of breath. Cardiovascular: Negative for chest pain and palpitations. Gastrointestinal: Negative for abdominal pain, diarrhea, nausea and vomiting. Musculoskeletal: Negative for myalgias. Skin: Negative for itching and rash. Neurological: Negative for dizziness, tingling and headaches. Physical Exam Vitals and nursing note reviewed. Constitutional: Appearance: Normal appearance. HENT: Right Ear: Decreased hearing noted. Tenderness present. No drainage or swelling. No middle ear effusion. There is no impacted cerumen. No mastoid tenderness. Tympanic membrane is not erythematous or bulging. Left Ear: Decreased hearing noted. Swelling and tenderness present. No drainage. No middle ear effusion. There is no impacted cerumen. No mastoid tenderness. Tympanic membrane is not erythematous or bulging. Eyes: Extraocular Movements: Extraocular movements intact. Pupils: Pupils are equal, round, and reactive to light. Cardiovascular: Rate and Rhythm: Normal rate and regular rhythm. Pulses: Normal pulses. Heart sounds: Normal heart sounds. Pulmonary: Effort: Pulmonary effort is normal. No respiratory distress. Breath sounds: Normal breath sounds. No wheezing. Skin: General: Skin is warm and dry. Neurological: Mental Status: He is alert and oriented to person, place, and time. BP 122/72 Pulse 102 Temp 98.3 Resp 16 Wt 274 lb (124.3kg) SpO2 97% Assessment/Plan (H60.332) Acute swimmer's ear of left side (primary encounter diagnosis) -ofloxacin (FLOXIN) 0.3 % otic solution -education material provided -use medication as prescribed -f/u if no better in 3-5 days -discussed proper ear hygiene -discussed prevention Selwyn Odonnell APRN.BROCK Discussed above plan with patient. Pt agreeable with above plan. [facility] Summary Purpose Family History No Family History Records FoundNo Family History Records FoundNo Family History Records Found Advance Directives No Advanced Directives Records FoundNo Advanced Directives Records FoundNo Advanced Directives Records Found Additional Source Comments (unrecognized sect ion and content) No Status Records FoundNo Status Records FoundNo Status Records Found INFORMATION SOURCE (unrecogn ized section and content) DATE CREATED AUTHOR 06/22/2018 [facility] ([place]) DATE CREATED AUTHOR AUTHOR'S ORGANIZ ATION 11/19/2018 [facility] DATE CREATED AUTHOR AUTHOR'S ORGANIZ ATION 01/13/2021 [facility] FOR RECORDS PERTAINING TO PATIENTS WHO ARE OR HAVE BEEN ENROLLED IN A CHEMICAL DEPENDENCY/SUBSTANCEABUSE PROGRAM, SOME INFORMATION MAY BE OMITTED. This clinical summary was aggregated from multiple sources. Caution should be exercised in using it in the provision of clinical care. This summary normalizes information from multiple sources, and as a consequence, information in this document may materially change the coding, format and clinical context of patient data. In addition, data may be omitted in some cases. CLINICAL DECISIONS SHOULD BE BASED ON THE PRIMARY CLINICAL RECORDS. [facility] Recorded Future [facility]. provides no warranty or guarantee of the accuracy or completeness of information in this document.
[2024-02-26 18:23] VITALS: PULSE 78; RESP 15; O2SAT 97
== END 2024-02-26 18:41 | disposition home or self-care (01) ==
PROVIDERS: Emergency Provider Emergency Medicine; PCP Family Medicine; Visit Provider Emergency Medicine
DX: S01.81XA Laceration without foreign body of other part of head, initial encounter (principal); E11.9 Type 2 diabetes mellitus without complications; V48.5XXA Car driver injured in noncollision transport accident in traffic accident, initial encounter; Y92.410 Unspecified street and highway as the place of occurrence of the external cause; M50.30 Other cervical disc degeneration, unspecified cervical region; E78.00 Pure hypercholesterolemia, unspecified; N40.0 Benign prostatic hyperplasia without lower urinary tract symptoms; M54.9 Dorsalgia, unspecified; G89.29 Other chronic pain; Z79.84 Long term (current) use of oral hypoglycemic drugs; Z79.85 Long-term (current) use of injectable non-insulin antidiabetic drugs; Z79.899 Other long term (current) drug therapy
CPT/HCPCS: 12011; 70450; 72125; 90715; 99285

== ENCOUNTER → 2024-10-10 | Outpatient (CLI) | payer BC, SELFPAY ==
--- OUTSIDE RECORDS SUMMARY | 2024-10-10 07:26 | XMS RPT_ITS | CCD ---
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 rate Rhythm: regular rhythm Skin General: no rashes or lesions noted Neuro General: patient alert Psych Appearance: grossly normal Mental Status: mental status grossly normal Coding Level of Care Code Off vis,new,level 3 Diagnoses Impacted cerumen, left ear H61.22 Acute diffuse otitis externa of left ear H60.312 Assessment and Plan Assessment and Plan (1) Impacted cerumen, left ear: Status: Acute (2) Acute diffuse otitis externa of left ear: Status: Acute Medications: New xexdgyyj-[id number]-XC 3.5-10,000-1 mg/mL-unit/mL-% apply to (cotton) wick; replace wick every 24 hours 3 drps otic (ear) Q4H 10 days 10 mL 0RF Plan Eardrops as prescribed today. All cerumen cleared with irrigation and curettage performed by myself. Encouraged to get plenty of rest, drink lots of clear liquids, and use Tylenol or Ibuprofen (unless contraindicated) for comfort. Patient also educated on other symptomatic management techniques. To be seen in 7-10 days if no improvement; sooner if worsening of symptoms. Patient verbalized understanding and agreement with all the above. Clinical Quality Measures Falls Risk Screening/Assistive Devices Have you fallen in the past year?: No 12/25/23 0723 Date Chu Matias Signature: Date __ (more content not included)... Normal [facility] Basophil percentageOrdered B y: Dr. Berry on 10-17-2022 Cholesterol [Mass/Vol] 167 mg/dL <200 [facility] Comment on above: <200 mg/dL Desirable 200-240 mg/dL Borderline >240 mg/dL High Risk Triglyceride [Mass/Vol] 338 mg/dL <199 [facility] Comment on above: The drugs N-Acetylcy steine and Metamizole may falsely depress this assay.Serum Triglycerides Reference Interval Normal <150 mg/dL Borderline high 150 - 199 mg/dL High 200 - 499 mg/dL Very High > or = 500 mg/dL Serum or plasma cholesterol in HDL measurement (mass/volume)Ordered By: Dr. Berry on 10-17-2022 Cholesterol in HDL [Mass/Vol] 32 mg/dL >40 [facility] Comment on above: The drugs N-Acetylcy steine and Metamizole may falsely depress this assay. Reference Range HDL <40 mg/dL Low HDL Cholesterol HDL >or= 60 mg/dL High HDL Cholesterol Serum or plasma cholesterol in VLDL measurement (mass/volume)Ordered By: Dr. Berry on 10-17-2022 Cholesterol in VLDL [Mass/Vol] 68 mg/dL 5-40 [facility] Serum or plasma low density lipoprotein (LDL) cholesterol measurement (mass/volume)Ordered By: Dr. Berry on 10-17-2022 Cholesterol in LDL [Mass/Vol] 67 mg/dL 0-130 [facility] Whole blood hemoglobin A1c/t otal hemoglobin ratio (mass fraction)Ordered By: Tonia Cruz on 10-17-2022 HbA1c (Bld) [Mass fraction] 10.5 % 3.8-5.6 [facility] Comment on above: Normal < 5.7 % Predi abetic 5.7 - 6.4 % Diabetic >or= 6.5 % Please note range changes. Basophil percentageOrdered B y: Tonia Cruz on 10-15-2022 Chloride [Moles/Vol] 101 mmol/L 98-107 [facility] Glucose [Mass/Vol] 176 mg/dL 74-106 [facility] Comment on above: Fasting Glucose resu lt greater than or equal to 126 mg/dL suggests DIABETES MELLITUS per A.D.A. criteria. Potassium [Moles/Vol] 3.5 mmol/L 3.5-5.1 [facility] Comment on above: Slight Hemolysis, Re sult may be falsely increased. Sodium [Moles/Vol] 139 mmol/L 136-145 [facility] Laboratory - Chemistry and C hemistry - challengeOrdered By: Tonia Cruz on 10-15-2022 CO2 [Moles/Vol] 28.0 mmol/L 21.0-32.0 [facility] Urea nitrogen/Creatinine [Mass ratio] 14.0 mg/mg 10-20 [facility] No Panel InformationOrdered By: Tonia Cruz on 10-15-2022 Estimated GFR (MDRD) Amer 87 mL/min >60 [facility] Comment on above: GFR Calc Estimated GFR (MDRD) Non-Af Amer 72 mL/min >60 [facility] Comment on above: Non- GFR Calc Serum or plasma calcium merry urement (mass/volume)Ordered By: Tonia Cruz on 10-15-2022 Calcium [Mass/Vol] 9.2 mg/dL 8.5-10.1 [facility] Serum or plasma creatinine m easurement (mass/volume)Ordered By: Tonia Cruz on 10-15-2022 Creatinine [Mass/Vol] 1.14 mg/dL 0.70-1.30 [facility] Comment on above: The validity of the calculated GFR & GFRAA in patients over 70 years has not been determined. Clinical correlation is essential. Serum or plasma urea nitroge n measurement (mass/volume)Ordered By: Tonia Cruz on 10-15-2022 Urea nitrogen [Mass/Vol] 16 mg/dL -18 [facility] Thin prep Papanicolaou smear with manual screeningOrdered By: Tonia Cruz on 10-15-2022 Thin prep Papanicolaou smear with manual screening 10 5-15 [facility] Basophil percentageOrdered B y: Tonia Cruz on 10-09-2022 Bilirubin [Mass/Vol] 0.50 mg/dL 0.20-1.00 [facility] Comment on above: For patients on eltr ombopag therapy, use of Dimension [place] TBIL is not recommended. Cholesterol [Mass/Vol] 215 mg/dL <200 [facility] Comment on above: <200 mg/dL Desirable 200-240 mg/dL Borderline >240 mg/dL High Risk Protein [Mass/Vol] 7.3 g/dL 6.4-8.2 [facility] Triglyceride [Mass/Vol] 691 mg/dL <199 [facility] Comment on above: The drugs N-Acetylcy steine and Metamizole may falsely depress this assay. TRIGLYCERIDE IS GREATER THAN 400 mg/dL. LDL RESULT IS INVALID AND WILL NOT BE REPORTED.Serum Triglycerides Reference Interval Normal <150 mg/dL Borderline high 150 - 199 mg/dL High 200 - 499 mg/dL Very High > or = 500 mg/dL Laboratory - Chemistry and C hemistry - challengeOrdered By: Tonia Cruz on 10-09-2022 ALP [Catalytic activity/Vol] 72 U/L 45-117 [facility] ALT [Catalytic activity/Vol] 45 U/L 16-61 [facility] Cobalamin (Vitamin B12) [Mass/Vol] 451 pg/mL 211-911 [facility] Globulin (S) [Mass/Vol] 3.6 g/dL 2.2-4.2 [facility] No Panel InformationOrdered By: Tonia Cruz on 10-09-2022 Prostate Specific Antigen Total 0.65 ng/mL 0.0-4.0 [facility] Comment on above: This test was perfor med using the TPSA assay method for theSymetrica chemistry system. Values obtained with differentassay methods cannot be used interchangably.When changing PSA assays in the course of monitoring apatient, additional sequential testing should be carriedout to confirm baseline values. Thyroid Stimulating Hormone (TSH) 2.55 uIU/mL 0.358-3.74 [facility] Vitamin D 25-Hydroxy 55.0 ng/mL [facility] Comment on above: Vitamin D 25(OH) Sta tus Range Deficiency <20 ng/mL (50nmol/L) Insufficiency 20 - 30 ng/mL (50 - 75 nmol/L) Sufficiency 30 - 100 ng/mL (75 - 250 nmol/L) Toxicity >100 ng/mL (>250 nmol/L) Serum or plasma albumin merry urement (mass/volume)Ordered By: Tonia Cruz on 10-09-2022 Albumin [Mass/Vol] 3.7 g/dL 3.2-5.0 [facility] Serum or plasma albumin/glob ulin mass ratioOrdered By: Tonia Cruz on 10-09-2022 Albumin/Globulin [Mass ratio] 1.0 {ratio} 0.9-2.4 [facility] Serum or plasma cholesterol in HDL measurement (mass/volume)Ordered By: Tonia Cruz on 10-09-2022 Cholesterol in HDL [Mass/Vol] 28 mg/dL >40 [facility] Comment on above: The drugs N-Acetylcy steine and Metamizole may falsely depress this assay. Reference Range HDL <40 mg/dL Low HDL Cholesterol HDL >or= 60 mg/dL High HDL Cholesterol Serum or plasma cholesterol in VLDL measurement (mass/volume)Ordered By: Tonia Cruz on 10-09-2022 Cholesterol in VLDL [Mass/Vol] [facility] Comment on above: Test not performed Serum or plasma low density lipoprotein (LDL) cholesterol measurement (mass/volume)Ordered By: Tonia Cruz on 10-09-2022 Cholesterol in LDL [Mass/Vol] [facility] Comment on above: Test not performed Serum or plasma uric acid me asurement (mass/volume)Ordered By: Tonia Cruz on 10-09-2022 Urate [Mass/Vol] 6.4 mg/dL 3.5-7.2 [facility] Comment on above: The drugs N-Acetylcy steine and Metamizole may falsely depress this assay. Thin prep Papanicolaou smear with manual screeningOrdered By: Tonia Cruz on 10-09-2022 Thin prep Papanicolaou smear with manual screening 29 U/L 15-37 [facility] Thin prep Papanicolaou smear with manual screening 5.4 mg/L NO RANGE EST. [facility] Whole blood hemoglobin A1c/t otal hemoglobin ratio (mass fraction)Ordered By: Tonia Cruz on 10-09-2022 HbA1c (Bld) [Mass fraction] 11.0 % 3.8-5.6 [facility] Comment on above: Normal < 5.7 % Predi abetic 5.7 - 6.4 % Diabetic >or= 6.5 % Please note range changes. RENATEOVsilvia 01-12-2021 CNOV Office Visit ([facility] ) ELADIO EDUARDO ([id number]) 1970 M Date Time Provider Department 01/12/21 12:45 PM SELWYN ODONNELL [facility] During your visit today, we recorded the following information about you: Temperature Pulse Respiration Blood pressure 98.7 degrees 100/minute 18/minute 128/80 Weight 124.3 kg Selwyn Odonnell APRN.[facility] 01/12/2021 1:47 PM Signed Visit Date: January 12, 2021 Patient Name: Mr.Arthur Eduardo Date of : 1970 MRN/E #: [id number] Chief Complaint Patient presents with: Insect Bite: [...] 1 tab(s) (more content not included)... Normal [facility] CNOVon 12-18-2020 CNOV Office Visit ([facility]WSTR ) ELADIO EDUARDO ([id number]) 1970 M Date Time Provider Department 12/18/20 7:30 AM SELWYN ODONNELL [facility] During your visit today, we recorded the following information about you: Temperature Pulse Respiration Blood pressure 98.3 degrees 102/minute 16/minute 122/72 Weight 124.3 kg Selwyn Odonnell APRN.CNP 12/18/2020 9:07 AM Signed Visit Date: December 18, 2020 Patient Name: Mr.Arthur Eduardo Date of : 1970 MRN/E #: [id number] Chief Complaint Patient presents with: Ear Pain: bilateral ear pain, swimming last week History of present illness Eladio Eduardo is a 50 year old male. Presents with complaints of bilateral ear pain that started 1 week ago. Denies having fever, chills, congestion, headache, body aches, fatigue, SOB, or N/V/D. 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 Normal [facility] CNOVon 11-19-2018 CNOV Office Visit ([facility] ) ALESHA BARNEYJERONIMO ([id number]) 1970 M Date Time Provider Department 11/19/18 7:45 AM ANNALISA CANNON [facility] During your visit today, we recorded the following information about you: Temperature Pulse Respiration Blood pressure 98 degrees 80/minute 16/minute 136/86 Weight 128.5 kg Annalisa Cannon APRN.CABLE LACER 11/19/2018 8:16 AM Signed Subjective HPI Art Alesha BARNEY is a 48 year old male [...] and symptoms. All questions addressed. Annalisa Cannon APRN.CABLE LACER Referring Provider: SELF [200] Allergies As of [...] Status:Closed by VALERY MAHAN.ANNALISA GUTIÉRREZ on 11/19/18 [facility] PROGRESSon 11-19-2018 PROGRESS HNO ID: [id number] Author: Annalisa Cannon Service: ? Author Type: [...] and symptoms. All questions addressed. Annalisa Cannon APRN.CNP [facility] Final Surgical Pathology Rep marva 06-10-2018 Final Surgical Pathology Report . Pathology Reports Accession: Collected Date/Time: Received Date/Time: Pathologist: [id number] 06/08/2018 08:22 EST 06/09/2018 08:22 EST MD [facility] Final Surgical Pathology Report DIAGNOSIS: LEFT LOWER [...] bisected. TS -1 Dictated by Pauly DEJESUS ([facility]) MICROSCOPIC DESCRIPTION: Slides reviewed. Electronically Signed by Pathology Report verified by [facility] Electronically signed by [facility] MD Sign out Date: 06/10/2018 12:33 Performing Lab: [facility], [address] [place] [address] ([place]) Comment on above: Performed By: #### S PFR #### [address] 11[address]2017 CNOV Office Visit ([facility]STR ) ALESHA III,ART ([id number]) 1970 M Date Time Provider Department 11/21/17 8:30 AM PATRICIA RINALDI ([facility]) [facility] During your visit today, we recorded the [...] diarrhea, or other joint pains. Patricia Rinaldi APRN.[facility] 11/21/2017 9:04 AM Signed Subjective HPI HPI [...] Status:Closed by PATRICIA RINALDI CNP on 11/21/17 [facility] PROGRESSon 11-21-2017 PROGRESS HNO ID: [id number] Author: Patricia Pritchett) [place] Service: (none) Author Type: Nurse Practitioner Type: [...] Patient agreeable to treatment plan. Patricia Rinaldi APRN.CABLE LACER [facility] Vital Signs Date Time Vital Sign Value Performing Clinician Yanely rock 04-08-2023 06:19-0500 Body height 175.26 cm DO Tonia Bosser Work Phone: [facility] 04-08-2023 06:19-0500 Body mass index (BMI) [Ratio] 39.2 kg/m2 DO Tonia Anthony Work Phone: [facility] 04-08-2023 06:19-0500 Body temperature 97.2 [degF] DO Tonia Cruz Work Phone: [facility] 04-08-2023 06:19-0500 Body weight 120.71 kg DO Tonia Cruz Work Phone: [facility] 04-08-2023 06:19-0500 Diastolic blood pressure 80 mm[Hg] DO Tonia Anthony Work Phone: [facility] 04-08-2023 06:19-0500 Heart rate 88 /min DO Tonia Anthony Work Phone: [facility] 04-08-2023 06:19-0500 Respiratory rate 18 /min DO Tonia Cruz Work Phone: [facility] 04-08-2023 06:19-0500 SaO2% (BldA) [Mass fraction] 95 % DO Tonia Anthony Work Phone: [facility] 04-08-2023 06:19-0500 Systolic blood pressure 125 mm[Hg] DO Tonia Anthony Work Phone: [facility] 10-24-2022 13:20-0400 Body height 175.26 cm DO Tonia Anthony Work Phone: [facility] 10-24-2022 13:20-0400 Body mass index (BMI) [Ratio] 38.4 kg/m2 DO Tonia Anthony Work Phone: [facility] 10-24-2022 13:20-0400 Body temperature 97.6 [degF] DO Tonia Anthony Work Phone: [facility] 10-24-2022 13:20-0400 Body weight 117.93 kg DO Tonia Anthony Work Phone: [facility] 10-24-2022 13:20-0400 Diastolic blood pressure 77 mm[Hg] DO Tonia Anthony Work Phone: [facility] 10-24-2022 13:20-0400 Heart rate 94 /min DO Tonia Anthony Work Phone: [facility] 10-24-2022 13:20-0400 Respiratory rate 18 /min DO Tonia Anthony Work Phone: [facility] 10-24-2022 13:20-0400 SaO2% (BldA) [Mass fraction] 97 % DO Tonia Anthony Work Phone: [facility] 10-24-2022 13:20-0400 Systolic blood pressure 121 mm[Hg] DO Tonia Anthony Work Phone: [facility] Encounters Encounter Date Encounter Type Care Provider Facility Start: 04-11-2024 End: 04-11-2024 ambulatory Merle Rhodes NP Facility:[facility] Start: 03-04-2024 End: 03-04-2024 ambulatory Bill Estrella Facility:[facility] Start: 02-26-2024 End: 02-26-2024 Emergency department patient visit Bill Estrella Facility:[facility] Start: 12-25-2023 End: 12-25-2023 ambulatory Chu DEJESUS Facility:[facility] Start: 04-30-2023 End: 04-30-2023 ambulatory DO Tonia Cruz Work Phone: [facility] Work Phone: Start: 04-30-2023 End: 04-30-2023 Patient encounter procedure DO Tonia Bosser Work Phone: [facility] Work Phone: Start: 04-30-2023 End: 04-30-2023 ambulatory Zane Martinez Facility:[facility] Start: 04-08-2023 End: 04-08-2023 Patient encounter procedure DO Tonia Bosser Work Phone: [facility] Work Phone: Start: 02-12-2023 End: 02-12-2023 ambulatory DO Tonia Cruz Work Phone: [facility] Work Phone: Start: 02-12-2023 End: 02-12-2023 Patient encounter procedure DO Tonia Bosser Work Phone: [facility] Work Phone: Start: 01-21-2023 End: 01-21-2023 ambulatory DO Tonia Cruz Work Phone: [facility] Work Phone: Start: 01-21-2023 End: 01-21-2023 Patient encounter procedure DO Tonia Bosser Work Phone: [facility] Work Phone: Start: 10-24-2022 End: 10-24-2022 Patient encounter procedure DO Tonia Bosser Work Phone: [facility] Work Phone: Start: 10-23-2022 Non-patient / Non-visit DO [facility] Start: 10-17-2022 End: 10-17-2022 ambulatory DO Tonia Cruz Work Phone: [facility] Work Phone: Start: 10-17-2022 End: 10-17-2022 Patient encounter procedure DO Tonia Cruz Work Phone: [facility] Start: 10-09-2022 End: 10-09-2022 ambulatory [facility] Work Phone: Start: 10-09-2022 End: 10-09-2022 Patient encounter procedure [facility] Start: 09-09-2021 End: 09-09-2021 Discharged [facility] Start: 06-08-2018 End: 06-13-2018 Patient encounter procedure MELONIE G JULIAN Facility:A Payers Date Payer Category Payer Self-pay [id number] 2018 Private Health Insurance [id number] 2018 Unknown [id number] 2014 Unknown [id number] 1970 Unknown [id number] Unknown [facility] [employer] [id number] Unknown [id number] Unknown [id number] Unknown [id number] Unknown [id number] Unknown [id number] Social History Date Type Detail Facility Tobacco smoking stat us NHIS Unknown if ever smoked [facility] Work Phone: Start: 1970 Sex Assigned At Male [facility] Start: 10-23-2022 End: 04-08-2023 Tobacco smoking status NHIS Unknown if ever smoked [facility] Progress note 01-12-2021 Note Date & Type Note Facility 01-12-2021 Note HNO ID: [id number] Author: Selwyn Odonnell APRN.CABLE LACER Service: ? Author Type: Nurse Practitioner Type: Progress Notes Filed: 01/12/2021 1:47 PM Note Text: Visit Date: January 12, 2021 Patient Name: Mr.Arthur Eduardo Date of : 1970 MRN/E #: [id number] Chief Complaint Patient presents with: Insect Bite: [...] with patient. Pt agreeable with above plan. [facility] Progress note 12-18-2020 Note Date & Type Note Facility 12-18-2020 Note HNO ID: [id number] Author: Selwyn Odonnell APRN.BROCK Service: ? Author Type: Nurse Practitioner Type: Progress Notes Filed: 12/18/2020 9:07 AM Note Text: Visit Date: December 18, 2020 Patient Name: Mr.Arthur Eduardo Date of : 1970 MRN/E #: [id number] Chief Complaint Patient presents with: Ear Pain: bilateral ear pain, swimming last week History of present illness Eladio Eduardo is a 50 year old male. Presents with complaints of bilateral ear pain that started 1 week ago. Denies having fever, chills, congestion, headache, body aches, fatigue, SOB, or N/V/D. 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 Pt agreeable with above plan. [facility] Evaluation note Note Date & Type Note Facility Evaluation note No assessment information availa ble [facility] Work Phone: Evaluation note Note Date & Type Note Facility Evaluation note Diagnosis Onset Date Obesity (BMI 30-39.9) acute VERNA (obstructive sleep apnea) chronic [facility] Work Phone: Summary Purpose Family History No Family History Records Found Relationship Condition Age at Onset Recorded Date/T basilio father Cardiac disease Unknown Hypertension Unknown Diabetes mellitus Unknown Obesity Unknown mother Malignant neoplasm of breast Unknown Malignant neoplasm Unknown grandfather Cardiac disease Unknown grandmother Cardiac disease Unknown Advance Directives No Advanced Directives Records FoundNo Advanced Directives Records FoundNo Advanced Directives Records FoundNo Advanced Directives Records Found Chief Complaint and Reason for Visit Chief Complaint SCIATICA/PT TO BRING RX Chief Complaint EORDER Chief Complaint EORDER EORDER- ANTHONY AND SCHINNER Amb Documentation Chief Complaint EORDER EORDER- ANTHONY AND SCHINNER Amb Documentation Sleep problems VERNA Reason for Visit Obesity (BMI 30-39.9 ) VERNA (obstructive sleep apnea) Chief Complaint Amb Documentation Sleep problems VERNA VERNA; CPAP REPAP *INVENTORY TAGGED* Reason for Visit Obesity (BMI 30-39.9 ) VERNA (obstructive sleep apnea) Chief Complaint VERNA VERNA; CPAP REPAP *INVENTORY TAGGED* 6 M FU VERNA; NB APPROVED 04/09/23 Reason for Visit Obesity (BMI 30-39.9 ) VERNA (obstructive sleep apnea) Additional Source Comments (unrecognized sect ion and content) No Status Records FoundNo Status Records FoundNo Status Records FoundNo Status Records Found INFORMATION SOURCE (unrecogn ized section and content) DATE CREATED AUTHOR 06/22/2018 [facility] ([place]) DATE CREATED AUTHOR AUTHOR'S ORGANIZ ATION 11/19/2018 [facility] DATE CREATED AUTHOR AUTHOR'S ORGANIZ ATION 01/13/2021 [facility] DATE CREATED AUTHOR AUTHOR'S ORGANIZ ATION 2024 [facility] Goals (unrecognized section and content) Goals may be documented in a n alternate sectionGoals may be documented in an alternate sectionGoals may be documented in an alternate sectionGoals may be documented in an alternate sectionGoals may be documented in an alternate sectionGoals may be documented in an alternate section Care Teams (unrecognized sec tion and content) Team Status: Active Member Role Status Dates GAGANDEEP GORDILLO Family Provider Active Tonia Cruz , DO Primary Care Provider Active Team Status: Inactive Member Role Status Dates Tonia Cruz , DO Primary Care Provi leonidas, Attending Provider, Referring Provider Active Team Status: Active Member Role Status Dates Tonia Cruz , DO Primary Care Provider Active Gloria Mahmood Attending Provider Active Team Status: Inactive Member Role Status Dates Tonia Cruz , DO Primary Care Provi leonidas, Attending Provider, Referring Provider Active Dr. Guzman Berry MD Other Provider Active Team Status: Inactive Member Role Status Dates Tonia Cruz , DO Primary Care Provider, Referring Provider Active Merle Rhodes ETYMOLOGY PROFESSOR, ETYMOLOGY PROFESSOR-C Attending Provider Active Team Status: Inactive Member Role Status Dates Tonia Cruz , DO Primary Care Provider Active Merle Rhodes ETYMOLOGY PROFESSOR, ETYMOLOGY PROFESSOR-C Attending Provider, Referrin g Provider Active Team Status: Inactive Member Role Status Dates Tonia Cruz , DO Primary Care Provider Active Merle Rhodes ETYMOLOGY PROFESSOR, ETYMOLOGY PROFESSOR-C Attending Provider Active Team Status: Inactive Member Role Status Dates Tonia Cruz , DO Primary Care Provider, Referring Provider Active Dr. Zane Martinez , Attending Provider Active Team Status: Inactive Member Role Status Dates Tonia Cruz , DO Primary Care Provider Active Dr. Zane Martinez , DO Attending Provider, Referring Pro vider Active FOR RECORDS PERTAINING TO PATIENTS WHO ARE [...] BE BASED ON THE PRIMARY CLINICAL RECORDS. [employer] provides no warranty or guarantee of the accuracy or completeness of information in this document.
== END | disposition home or self-care (01) ==
LOC: MTLAB 07:23
PROVIDERS: PCP Family Medicine; Referring Provider Family Medicine; Visit Provider Family Medicine
DX: E11.9 Type 2 diabetes mellitus without complications (principal)
CPT/HCPCS: 36415; 83036; 84403

== ENCOUNTER 2024-10-14 07:56 | Outpatient (CLI) | payer BC, SELFPAY ==
[2024-10-14 10:54] LABS: PSA,Total - Annual Screen 0.61 ng/mL (0.02-4.00)
== END 2024-10-14 23:59 | disposition home or self-care (01) ==
LOC: MTLAB 07:59
PROVIDERS: PCP Family Medicine; Referring Provider Family Medicine; Visit Provider Family Medicine
DX: E34.9 Endocrine disorder, unspecified (principal)
CPT/HCPCS: 36415; 84153; 84403; G0103

== ENCOUNTER → 2025-02-09 | Outpatient (CLI) | payer BC, SELFPAY | END | disposition home or self-care (01) | LOC: SL 13:15 | PROVIDERS: PCP Family Medicine; Referring Provider Nurse Practitioner Acute Care; Visit Provider Nurse Practitioner Acute Care | DX: G47.33 Obstructive sleep apnea (adult) (pediatric) (principal) | CPT/HCPCS: 98960; G0463 ==